=== PATIENT | female | born 1970 | race Hispanic/Latino ===

== ENCOUNTER 2017-07-18 13:46 | Emergency (ER) | payer OTHER, SELFPAY | END 2017-07-18 14:37 | disposition home or self-care (01) | LOC: SCSER 13:46 | DX: J01.90 Acute sinusitis, unspecified (principal); E78.5 Hyperlipidemia, unspecified; G47.00 Insomnia, unspecified; F41.9 Anxiety disorder, unspecified; F32.9 Major depressive disorder, single episode, unspecified; F17.210 Nicotine dependence, cigarettes, uncomplicated; Z79.899 Other long term (current) drug therapy | CPT/HCPCS: 99283 ==

== ENCOUNTER 2018-03-18 21:33 | Emergency (ER) | payer OTHER ==
[2018-03-18] MEDS ORDERED: HYDROcodone/Acetaminophen 10/325 mg Tablet ONE (22:30)
[2018-03-18] MEDS ORDERED: Morphine 4 MG/ML Carpuject ONE (22:30)
== END 2018-03-18 22:56 | disposition home or self-care (01) ==
LOC: SCSER 21:33
DX: G89.29 Other chronic pain (principal); F41.9 Anxiety disorder, unspecified; F32.9 Major depressive disorder, single episode, unspecified; F17.210 Nicotine dependence, cigarettes, uncomplicated; E78.5 Hyperlipidemia, unspecified; G47.00 Insomnia, unspecified; Z79.891 Long term (current) use of opiate analgesic; Z79.899 Other long term (current) drug therapy
CPT/HCPCS: 96372; J2270

== ENCOUNTER 2018-05-01 13:00 | Emergency (ER) | payer OTHER | END 2018-05-01 13:33 | disposition home or self-care (01) | LOC: SCSER 13:00 | DX: G89.29 Other chronic pain (principal); M54.2 Cervicalgia; E78.5 Hyperlipidemia, unspecified; F41.9 Anxiety disorder, unspecified; F32.9 Major depressive disorder, single episode, unspecified; F17.210 Nicotine dependence, cigarettes, uncomplicated; Z79.899 Other long term (current) drug therapy | CPT/HCPCS: 99283 ==

== ENCOUNTER 2018-11-01 15:09 | Emergency (ER) | payer OTHER ==
[2018-11-02] MEDS ORDERED: Ondansetron PF 4 MG/2 ML Vial ONE (20:55)
== END 2018-11-01 16:56 | disposition left against medical advice (07) ==
LOC: ERS 15:09
DX: Z53.21 Procedure and treatment not carried out due to patient leaving prior to being seen by health care provider (principal)
CPT/HCPCS: J2405

== ENCOUNTER 2018-11-02 19:20 | Emergency (ER) | payer OTHER | END 2018-11-02 20:59 | disposition home or self-care (01) | LOC: ERS 19:20 | DX: F10.129 Alcohol abuse with intoxication, unspecified (principal); G47.00 Insomnia, unspecified; E78.5 Hyperlipidemia, unspecified; J45.909 Unspecified asthma, uncomplicated; F41.9 Anxiety disorder, unspecified; F32.9 Major depressive disorder, single episode, unspecified | CPT/HCPCS: 96374 ==

== ENCOUNTER 2019-04-17 19:20 | Emergency (ER) | payer OTHER ==
[2019-04-17] MEDS ORDERED: Morphine 4 MG/ML VIAL ONE (21:55)
[2019-04-17] MEDS ORDERED: Ketorolac Tromethamine 30 MG/ML VIAL ONE (21:55)
== END 2019-04-17 22:28 | disposition home or self-care (01) ==
LOC: ERS 19:20
DX: G89.29 Other chronic pain (principal); M54.5 Low back pain; E78.5 Hyperlipidemia, unspecified; J45.909 Unspecified asthma, uncomplicated; F41.9 Anxiety disorder, unspecified; F32.9 Major depressive disorder, single episode, unspecified; F17.210 Nicotine dependence, cigarettes, uncomplicated; G47.00 Insomnia, unspecified
CPT/HCPCS: 96372; 99283; J1885; J2270

== ENCOUNTER 2019-08-26 17:04 | Emergency (ER) | payer OTHER ==
[2019-08-26] MEDS ORDERED: Ketorolac Tromethamine 30 MG/ML VIAL ONE (17:34)
[2019-08-26] MEDS ORDERED: Ondansetron ODT 4 MG TAB ONE (17:34)
== END 2019-08-26 17:48 | disposition home or self-care (01) ==
LOC: ERS 17:04
DX: M54.5 Low back pain (principal); G89.29 Other chronic pain; J45.909 Unspecified asthma, uncomplicated; E78.5 Hyperlipidemia, unspecified; F41.9 Anxiety disorder, unspecified; F32.9 Major depressive disorder, single episode, unspecified; F17.210 Nicotine dependence, cigarettes, uncomplicated; G47.00 Insomnia, unspecified; Z79.899 Other long term (current) drug therapy
CPT/HCPCS: 96372; 99283; J1885; Q0162

== ENCOUNTER 2019-12-17 21:03 | Emergency (ER) | payer OTHER ==
[2019-12-17] MEDS ORDERED: Ketorolac Tromethamine 30 MG/ML VIAL ONE (22:50)
== END 2019-12-17 23:01 | disposition home or self-care (01) ==
LOC: ERS 21:03
DX: M62.838 Other muscle spasm (principal); E78.5 Hyperlipidemia, unspecified; J45.909 Unspecified asthma, uncomplicated; F41.9 Anxiety disorder, unspecified; F32.9 Major depressive disorder, single episode, unspecified; F17.210 Nicotine dependence, cigarettes, uncomplicated; Z79.899 Other long term (current) drug therapy
CPT/HCPCS: 96372; 99283; J1885

== ENCOUNTER 2019-12-29 17:23 | Emergency (ER) | payer OTHER ==
[2019-12-29] MEDS ORDERED: HYDROcodone/Acetaminophen 7.5/325 mg Tablet ONE (18:25)
--- NOTE | 2019-12-29 18:40 | CT ---
CT of thelumbar spine: 12/29/2019 COMPARISON:None available HISTORY:Back pain, fall TECHNIQUE: Serial axial CT imaging at2.5 mm intervals from thelower thoracic spine through the lower sacrum without contrast. Coronal and sagittal reformatted imaging obtained Findings:Evaluation for central canal and/or neural foraminal stenosis is limited on routine CT. Ther e appear to be 6 lumbar type vertebral bodies present, with a partially sacralized L6 vertebral body on the left. There is minimal anterolisthesis at the L4-5 level. Evaluation of the imaged retroperitoneal structures demonstrates no acute findings. T12-L1: No osseous cause of significant central canal or neural foraminal stenosis L1-2: No osseous cause of significant central canal or neural foraminal stenosis L2-3: No osseous cause of significant central canal or neural foraminal stenosis. L3-4: Bilateral facet hypertrophy. Probable mild disc bulge. Findings suggesting mild central canal s tenosis and bilateral neural foraminal stenosis. L4-5: Prominent bilateral facet hypertrophy with moderate/severe bilateral neural foraminal stenosis. Disc bulge present with probable moderate central canal stenosis. L5 6: Bilateral facet hypertrophy with moderate/severe bilateral neural foraminal stenosis. Probable mild disc bulge with mild/moderate central canal stenosis. L6 S1: Mild bilateral facet hypertrophy. No osseous cause of significant central canal stenosis. Prob able mild bilateral neural foraminal stenosis. No worrisome lytic or blastic bone lesion. No acute lumbar spine fracture or dislocation. Impression:Multilevel degenerative change seen within the lumbar spine as detailed above. No acute fr acture or dislocation is evident.
--- NOTE | 2019-12-29 19:13 | RAD ---
Exam: XR Wrist 3 Lt View STANDARD HISTORY: Left wrist pain after a fall COMPARISON: None FINDINGS: No acute fracture, dislocation, or other acute osseous abnormality is identified. IMPRESSION: No acute osseous abnormality is identified. If patient's symptoms persist, or if there is strong clin ical concern for fracture of the navicular bone, follow-up views of the wrist are recommended in 4-7 days after conservative management.
[2019-12-29] MEDS ORDERED: Orphenadrine Citrate 60 MG/2 ML VIAL IM SCH (19:45)
== END 2019-12-29 20:37 | disposition home or self-care (01) ==
LOC: ERS 17:23
DX: S39.012A Strain of muscle, fascia and tendon of lower back, initial encounter (principal); M25.532 Pain in left wrist; M48.00 Spinal stenosis, site unspecified; E78.5 Hyperlipidemia, unspecified; G47.00 Insomnia, unspecified; J45.909 Unspecified asthma, uncomplicated; F41.9 Anxiety disorder, unspecified; F32.9 Major depressive disorder, single episode, unspecified; F17.210 Nicotine dependence, cigarettes, uncomplicated; W01.0XXA Fall on same level from slipping, tripping and stumbling without subsequent striking against object, initial encounter; Y92.512 Supermarket, store or market as the place of occurrence of the external cause
CPT/HCPCS: 29125; 72131; 96372; J2360

== ENCOUNTER 2020-01-24 10:48 | Emergency (ER) | payer OTHER ==
[2020-01-24] MEDS ORDERED: Ketorolac Tromethamine 30 MG/ML VIAL ONE ×2 (11:45→11:47)
[2020-01-24] MEDS ORDERED: Lorazepam 2 MG/ML VIAL ONE (11:45)
[2020-01-24] MEDS ORDERED: Fentanyl 100 MCG/2 ML VIAL ONE (11:45)
== END 2020-01-24 12:10 | disposition home or self-care (01) ==
LOC: ERS 10:48
DX: G89.29 Other chronic pain (principal); M54.5 Low back pain; E78.5 Hyperlipidemia, unspecified; J45.909 Unspecified asthma, uncomplicated; F41.9 Anxiety disorder, unspecified; F32.9 Major depressive disorder, single episode, unspecified; F17.210 Nicotine dependence, cigarettes, uncomplicated; Z79.899 Other long term (current) drug therapy
CPT/HCPCS: 96372; 99283; J1885; J2060; J3010

== ENCOUNTER 2020-03-03 10:16 | Emergency (ER) | payer OTHER ==
[2020-03-03] MEDS ORDERED: Orphenadrine Citrate 60 MG/2 ML VIAL SLOW IVP SCH (10:45)
== END 2020-03-03 13:07 | disposition left against medical advice (07) ==
LOC: ERS 10:16
DX: M54.41 Lumbago with sciatica, right side (principal); M54.42 Lumbago with sciatica, left side; E78.5 Hyperlipidemia, unspecified; J45.909 Unspecified asthma, uncomplicated; F17.210 Nicotine dependence, cigarettes, uncomplicated
CPT/HCPCS: 99283; J2360

== ENCOUNTER 2020-03-30 13:43 | Outpatient (CLI) | payer OTHER ==
--- NOTE | 2020-03-30 14:33 | CT ---
Cervical spine CT: 03/30/2020 HISTORY: Cervical spine pain, neck pain radiating into bilateral shoulders TECHNIQUE: Axial CT imaging at 2 mm intervals through the cervical spine with out contrast. Coronal a nd sagittal reformatted imaging obtained. FINDINGS: Evaluation for central canal and/or neural foraminal stenosis is limited on routine CT. The patient is status post bilateral laminectomy at C3, C4, C5, and C6, and there is anterior discectomy and fusion hardware at C5-6. Moderate degenerative change present at the atlantoaxial interspace. Partially imaged paranasal sinus es and mastoid air cells are well-aerated. Visualized lung apices are unremarkable aside from mild subpleural cystic change bilaterally, right g reater than left. C2-3: No osseous cause of significant central canal or neural foraminal stenosis. C3-4: Mild uncovertebral osteophyte formation and facet hypertrophy, right greater than left. Mild ri ght neural foraminal stenosis. No significant central canal stenosis. Mild left neural foraminal stenosis. C4-5: Disc space narrowing with posterior and anterior osteophyte formation noted. There is bilateral facet and uncovertebral osteophyte formation, left greater than right. Mild right and moderate left neural foraminal stenosis. There is prominent posterior osteophyte associated with the superior endplate of the C5 vertebral body effacing the ventral thecal sac and causing a degree of central canal stenosis, difficult to quantify on noncontrast enhanced CT. There has been bilateral laminectom y at this level however. C5-6: Bilateral facet and uncovertebral osteophyte formation present, right greater than left with mi ld left and moderate right neural foraminal stenosis. No central canal stenosis. C6-7: No osseous cause of significant central canal or neural foraminal stenosis. C7-T1: No osseous cause of significant central canal stenosis. There is a left neural foraminal steno sis on the basis of facet and uncovertebral osteophyte formation. No worrisome lytic or blastic bone lesion. No acute fracture or dislocation. IMPRESSION: Multilevel postoperative and degenerative changes within the cervical spine as detailed a amos. A cervical spine CT myelogram could best assess for central canal and/or neural foraminal stenosis within the cervical spine.
--- NOTE | 2020-03-30 15:01 | RAD ---
CERVICAL SPINE SERIES SEVEN VIEWS INCLUDING FLEXION AND EXTENSION. 03/30/20 HISTORY: Neck pain. Bilateral upper extremity radiculopathy. Postoperative changes of the spine are noted. This includes laminectomy changes from C3 to C6. Also a nterior plate and screws have been placed at C5-6 level and there is mild disc narrowing at C4-5. No abnormal motion on the flexion or extension views. IMPRESSION: Postoperative changes and arthritic changes of the spine. POS: AIYANA
--- NOTE | 2020-03-30 15:02 | RAD ---
LUMBAR SPINE 4 VIEWS INCLUDING FLEXION AND EXTENSION LATERAL VIEWS: HISTORY: Low back pain. FINDINGS: Transitional vertebrae at the lumbosacral region. Evidence for a partially lumbarized S1. Mild grad e I anterolisthesis of L4 on L5. No abnormal translation between flexion and extension. No focal arron ne lesion. Generalized spondylosis. IMPRESSION: Mild grade I anterolisthesis of L4 and L5 without evidence for abnormal translation. Partial lumbarization of S1. Generalized spondylosis. POS: RRE
--- NOTE | 2020-03-30 15:07 | RAD ---
THORACIC SPINE 3 VIEWS: HISTORY: Neck pain. Injury following a fall several months ago with bilateral radiculopathy. FINDINGS: Swimmer's view is on the cervical spine images. Anterior cervical fusion changes at C5-C6. No evide nce for acute fracture or dislocation. No significant malalignment. Mild disk-osteophytosis. IMPRESSION: Mild spondylosis. No focal bone lesion or acute fracture or dislocation. POS: RRE
== END 2020-03-30 13:44 | disposition home or self-care (01) ==
LOC: BICCT 13:43
PROVIDERS: ATTEND Surgery
DX: M54.2 Cervicalgia (principal); M54.5 Low back pain; M54.6 Pain in thoracic spine; M25.519 Pain in unspecified shoulder; M79.606 Pain in leg, unspecified; M47.812 Spondylosis without myelopathy or radiculopathy, cervical region; M47.814 Spondylosis without myelopathy or radiculopathy, thoracic region; M43.16 Spondylolisthesis, lumbar region; M47.816 Spondylosis without myelopathy or radiculopathy, lumbar region; Q76.49 Other congenital malformations of spine, not associated with scoliosis
CPT/HCPCS: 72050; 72072; 72110; 72125

== ENCOUNTER 2020-05-03 09:19 | Outpatient (CLI) | payer OTHER ==
[2020-05-04 02:29] LABS: SARS-CoV-2 PCR by NAA Not Detected (NotDetected)
== END 2020-05-03 09:20 | disposition home or self-care (01) ==
LOC: LABBT 09:19
PROVIDERS: ATTEND Surgery
DX: M54.5 Low back pain (principal); Z20.822 Contact with and (suspected) exposure to COVID-19
CPT/HCPCS: 87635; U0003; U0005

== ENCOUNTER 2020-05-07 10:02 | Day surgery (SDC) | payer OTHER ==
[2020-05-05 12:26] VITALS: BMI 36.3
[2020-05-07] MEDS ORDERED: Midazolam HCl 2 mg/2 ml Vial ONE (11:11)
[2020-05-07] MEDS ORDERED: PHENYLEPHRINE-NS 100 MCG/ML 10 ML SYRINGE ONE (11:30)
[2020-05-07] MEDS ORDERED: PROPOFOL 200 MG/20 ML VIAL ONE (11:30)
[2020-05-07] MEDS ORDERED: Lidocaine 1% PF 5 ML VIAL ONE (11:30)
== END 2020-05-07 13:24 | disposition home or self-care (01) ==
LOC: SDC/OP 10:02
PROVIDERS: ATTEND Surgery
DX: M54.2 Cervicalgia (principal); M54.5 Low back pain; M47.812 Spondylosis without myelopathy or radiculopathy, cervical region; M47.816 Spondylosis without myelopathy or radiculopathy, lumbar region; Z98.890 Other specified postprocedural states
CPT/HCPCS: 72141; 72148; J2250; J2704

== ENCOUNTER 2020-07-30 00:37 | Emergency (ER) | payer OTHER | END 2020-07-30 01:01 | disposition home or self-care (01) | LOC: ERS 00:37 | DX: M54.2 Cervicalgia (principal); M54.9 Dorsalgia, unspecified; Y09 Assault by unspecified means | CPT/HCPCS: 99284 ==